=== PATIENT | female | born 1980 | race American Indian/Alaskan Native ===

== ENCOUNTER 2017-04-21 20:14 | Inpatient (IN) | payer MEDICARE ==
[2017-04-21 21:25] LABS: Basophils % (Auto) 0.5 % (0.0-1.8); Eosinophils % (Auto) 2.8 % (0.0-4.3); Hemoglobin 9.2 gm/dl (10.1-14.3); Mean Corpuscular HGB Conc 33 % (30-34); Mean Corpuscular Hemoglobin 32 pg (28-32); Mean Corpuscular Volume 97 fl (79-97); Red Blood Count 2.87 M/mm3 (3.65-5.03); Red Cell Distribution Width 14.4 % (13.2-15.2)
[2017-04-21 21:30] LABS: Platelet Count 77 K/mm3 (140-440)
[2017-04-21 21:44] LABS: BUN/Creatinine Ratio 7.74; Calcium 7.9 mg/dL (8.4-10.2); Chloride 92.8 mmol/L (98-107); Potassium 5.9 mmol/L (3.6-5.0)
--- NOTE | 2017-04-22 08:34 | XRay Report ---
Chest 2 views. History: Shortness of breath. Findings: The heart is mildly enlarged with minimal prominence of the central pulmonary vessels. The periphery of the lungs is clear. No focal infiltrates are seen and there is no pleural fluid. Impression: Mild cardiomegaly with central vascular congestion.
--- NOTE | 2017-04-22 10:56 | Emergency Department Report ---
ED Chest Pain HPI - General Chief Complaint: Chest Pain Stated Complaint: SHORTNESS OF BREATH/CHEST PAIN Time Seen by Provider: 04/22/17 10:35 Source: patient Mode of arrival: Ambulatory Limitations: No Limitations - History of Present Illness Initial Comments: The patient missed that she suffers from chronic pain in her arms and her legs. She actually denies chest pain now. She had pain in her right and left arm when she was out in triage. She may have stated chest pain but is denying right now. Basically she is here for dialysis because outpatient arrangements fell through. Patient states that she was last dialyzed on at [facility]. Outpatient arrangements were in progress but did not materialize. She states that that was because she needed hepatitis testing. In any case she is a chronic dialysis patient for the last 9 years recently relocated to the [place] area. She has history of hypertension. She states that her renal failure was precipitated by preeclampsia. Complaint: other -: year(s) Onset: other (chronic pain of her arms and legs) Pain Location: other (denies chest pain) Pain Radiation: other (both arms) Severity: mild Severity scale (0 -10): 7 Quality: aching Consistency: now resolved (states only lasted minutes) Improves With: nothing Worsens With: nothing re: denies: nausea, vomting, diaphoresis Other Symptoms: denies: cough, fever, syncope Treatments Prior to Arrival: none - Related Data Allergies Allergy/AdvReac Type Severity Reaction Status Date / Time adhesive tape Allergy Swelling Verified 04/21/17 20:47 hydromorphone HCl Allergy Unknown Verified 04/21/17 20:47 [From Dilaudid] Heart Score - HEART Score History: Slightly suspicious EKG: Normal Age: < 45 Risk factors: No known risk factors Troponin: < normal limit HEART Score: 0 - Critical Actions Critical Actions: 0-3 pts:0.9-1.7%risk of adverse cardiac event.Candidate for discharge ED Review of Systems ROS: Stated complaint: SHORTNESS OF BREATH/CHEST PAIN Other details as noted in HPI Constitutional: denies: chills, fever Eyes: denies: eye pain, eye discharge, vision change ENT: denies: ear pain, throat pain Respiratory: denies: cough, shortness of breath, wheezing Cardiovascular: denies: chest pain, palpitations Endocrine: no symptoms reported Gastrointestinal: denies: abdominal pain, nausea, diarrhea Genitourinary: as per HPI. denies: urgency, dysuria, discharge Musculoskeletal: denies: back pain, joint swelling, arthralgia Skin: denies: rash, lesions Neurological: denies: headache, weakness, paresthesias Psychiatric: denies: anxiety, depression Hematological/Lymphatic: denies: easy bleeding, easy bruising ED Past Medical Hx - Past Medical History Previous Medical History?: Yes Hx Hypertension: Yes Hx Renal Disease: Yes (dialysis TUE, THURS, SAT) - Surgical History Past Surgical History?: Yes Additional Surgical History: fistula left arm, kidney transplant 2012, thyroid sx 2014 - Social History Smoking Status: Current Every Day Smoker Substance Use Type: Marijuana ED Physical Exam - General Limitations: No Limitations General appearance: alert, in no apparent distress - Head Head exam: Present: atraumatic, normocephalic - Eye Eye exam: Present: normal appearance. Absent: scleral icterus - ENT ENT exam: Present: mucous membranes moist - Neck Neck exam: Present: normal inspection - Respiratory Respiratory exam: Present: normal lung sounds bilaterally. Absent: respiratory distress - Cardiovascular Cardiovascular Exam: Present: regular rate, normal rhythm. Absent: systolic murmur, diastolic murmur, rubs, gallop - GI/Abdominal GI/Abdominal exam: Present: soft, normal bowel sounds. Absent: distended, tenderness, guarding, rebound - Extremities Exam Extremities exam: Present: other - Back Exam Back exam: Present: normal inspection - Neurological Exam Neurological exam: Present: alert, oriented X3, CN II-XII intact. Absent: motor sensory deficit - Psychiatric Psychiatric exam: Present: normal affect, normal mood - Skin Skin exam: Present: warm, dry, intact, normal color. Absent: rash ED Course Vital Signs 04/21/17 04/22/17 04/22/17 20:47 07:48 07:50 Temperature 98.1 F Pulse Rate 59 L Respiratory 20 Rate Blood Pressure 174/112 Blood Pressure [Left] O2 Sat by Pulse 100 100 100 Oximetry 04/22/17 04/22/17 04/22/17 08:01 08:11 08:21 Temperature Pulse Rate Respiratory Rate Blood Pressure 160/103 160/103 Blood Pressure [Left] O2 Sat by Pulse 100 100 100 Oximetry 04/22/17 04/22/17 04/22/17 08:30 08:41 08:50 Temperature Pulse Rate Respiratory 12 Rate Blood Pressure 165/105 165/105 Blood Pressure [Left] O2 Sat by Pulse 100 100 100 Oximetry 04/22/17 04/22/17 10:08 11:30 Temperature 98.7 F Pulse Rate 67 59 L Respiratory 12 Rate Blood Pressure 163/103 Blood Pressure 161/105 [Left] O2 Sat by Pulse 100 Oximetry - Reevaluation(s) Reevaluation #1: Patient refused Kayexalate. She is admitted to the hospitalist service by Dr. CRUZ for further care and evaluation. She was given glucose and insulin to temporize awaiting dialysis. I am waiting for the reimbursement consultant called back. She is clinically stable. Nitropaste for uncontrolled hypertension. 04/22/17 11:58 HALIMA score - Halima Score Age > 65: (0) No Aspirin use within the Past 7 Days: (0) No 3 or more CAD Risk Factors: (0) No 2 or more Angina events in past 24 hrs: (0) No Known CAD with more than 50% Stenosis: (0) No Elevated Cardiac Markers: (0) No ST Deviation Greater than 0.5mm: (0) No HALIMA Score: 0 ED Medical Decision Making - Lab Data Result diagrams: 04/21/17 21:10 04/21/17 21:10 Laboratory Results - last 24 hr 04/21/17 04/21/17 04/21/17 21:10 21:10 21:10 WBC 3.0 L RBC 2.87 L Hgb 9.2 L Hct 28.0 L MCV 97 MCH 32 MCHC 33 RDW 14.4 Plt Count 77 L Lymph % (Auto) 35.4 H Doddridge % (Auto) 7.9 H Eos % (Auto) 2.8 Baso % (Auto) 0.5 Lymph # 1.1 L Doddridge # 0.2 Eos # 0.1 Baso # 0.0 Seg Neutrophils % 53.4 Seg Neutrophils # 1.6 L Sodium 140 Potassium 5.9 H Chloride 92.8 L Carbon Dioxide 24 Anion Gap 29 BUN 110 H Creatinine 14.2 H Estimated GFR 4 BUN/Creatinine Ratio 7.74 Glucose 92 Calcium 7.9 L Troponin T 0.021 NT-Pro-B Natriuret Pep 83087 H HCG, Qual Negative 04/22/17 04/22/17 00:09 02:33 WBC RBC Hgb Hct MCV MCH MCHC RDW Plt Count Lymph % (Auto) Doddridge % (Auto) Eos % (Auto) Baso % (Auto) Lymph # Doddridge # Eos # Baso # Seg Neutrophils % Seg Neutrophils # Sodium Potassium Chloride Carbon Dioxide Anion Gap BUN Creatinine Estimated GFR BUN/Creatinine Ratio Glucose Calcium Troponin T 0.021 0.018 NT-Pro-B Natriuret Pep HCG, Qual - EKG Data -: EKG Interpreted by Me EKG shows normal: sinus rhythm Rate: bradycardia - EKG Data Interpretation: LVH, other (consistent with hyperkalemia) - Radiology Data interpreted by me: Cardiomegaly with mild cephalization Critical Care Time: Yes Critical care time in (mins) excluding proc time.: 45 Critical care attestation.: If time is entered above; I have spent that time in minutes in the direct care of this critically ill patient, excluding procedure time. ED Disposition Clinical Impression: Hyperkalemia, Pancytopenia, Thrombocytopenia, Uncontrolled hypertension, End- stage renal disease on hemodialysis Cardiomyopathy Qualifiers: Cardiomyopathy type: unspecified Qualified Code(s): I42.9 - Cardiomyopathy, unspecified Disposition: OP ADMIT IP TO THIS HOSP Is pt being admited?: Yes Does the pt Need Aspirin: No (medically contraindicated platelet count 77) Condition: Stable Instructions: Hypertension (ED) Referrals: PRIMARY CARE, [Primary Care Provider] - 3-5 Days Time of Disposition: 12:00
[2017-04-22] MEDS ORDERED: NITRO-BID 2% TP ONE (10:57)
[2017-04-22] MEDS ORDERED: KIONEX PO ONE (10:57)
[2017-04-22] MEDS ORDERED: D50W (25GM) Syringe IV ONE (11:51)
--- NOTE | 2017-04-22 12:29 | Admit Criteria Form ---
Admission Criteria Documentation: CARDIOLOGY GRG Clinical Indications for Admission to Inpatient Care (Martha/check or initial the applicable condition/criteria) Hospital admission is needed for appropriate care of the patient because of ANY ONE of the following: [ ] I. Hemodynamic instability as indicated by ALL of the following (1)(2)(3) (4)(5)(6)(7)(8)(9)(10) [ ]a) Vital sign abnormality not readily corrected by appropriate treatment with 12-24 hours for ANY ONE: [ ]i) Hypotension that persists despite appropriate treatment (eg, volume repletion) [ ]ii) Tachycardiathat persists despite appropriate tx ( e.g., analgesia, fluids, sedation as indicated [ ]iii) Orthostatic vital sign changes that persists despite appropriate treatment (eg, volume repletion) [ ]b) Vital sign abnormailty that is severe indicated by ANY ONE of the following: [ ]i) Inadequate perfusion indicated by ANY ONE of the following: [ ] 1) Lactic acidosis (> 2 mmol/L) [ ] 2) New abnormal capillary refill (> 3 seconds) [ ] 3) Reduced urine output [ ] 4) New altered mental status [ ] 5) Myocardial Ischemia [ ] 6) Other metabolic acidosis (arterial pH <7.35 ) not otherwise explained. [ ]ii) Mean arterial pressure[A] less than 60 mm Hg [ ]iii) Mean arterial pressure[A] less than 70 mm Hg after 30 minutes of appropriate treatment (eg, fluid resuscitation) [ ]iv) Sustained heart rate greater than 120 beats per minute in adult or child 6 years or older[B] [ ]v) IV inotropic or vasopressor medication required to maintain adequate blood pressure or perfusion [ ] II. Severe heart failure as indicated by ANY ONE of the following(17)(18) [ ]a) Respiratory distress [ ]b) Hypotension [ ]c) Debilitating anasarca refractory to therapy (eg, tissue breakdown with infection)[C](19) [ ]d) Cardiac arrhythmias of immediate concern [ ]e) Myocardial ischemia [ ] III. Cardiac arrhythmias or findings of immediate concern indicated by ANY ONE of the following (21)(22): [ ] a) Heart rhythms that are inherently dangerous or unstable indicated by ANY ONE of the following (23)(24)(25): [ ] i) Resuscitated ventricular fibrillation or cardiac arrest [ ] ii) Ventricular escape rhythm [ ] iii) Sustained ventricular tachycardia (30 seconds or more of ventricular rhythm at greater than 100 beats per minute) [ ] iv) Nonsustained ventricular tachycardia and ANY ONE of the following: [ ] 1) Suspected cardiac ischemia as cause or consequence of ventricular tachycardia [ ] 2) Acute myocarditis [ ] b) Unstable cardiac conduction defects indicated by ANY ONE of the following(25)(26)(27) [ ] i) Type II second-degree atrioventricular block [ ]ii) Third-degree atrioventricular block [ ]iii) New-onset left bundle branch block with suspected myocardial ischemia [ ]c) Any heart rhythm and ANY ONE of the following (23)(24)(28)(29) (30) [ ] i) Continuous long-term ECG monitoring needed (e.g., initiation of drug requiring monitoring for more than 24 hours) [ ] ii) Patient has automatic implanted cardioverter defibrillator that is repeatedly firing, malfunctioning, or in need of immediate adjustment of settings beyond the scope of ambulatory or observation care [ ]d) Heart rhythms of concern due to ANY ONE of the following: [ ] i) Hypotension [ ] ii) Respiratory distress [ ] iii) Association with other significant symptoms (e.g., bradycardia with syncope or ongoing dizziness, supraventricular tachycardia with chest pain (28)(29)(31) [ ] IV. Monitoring for cardiac contusion beyond the scope of observation care needed [A](32)(33)(34) [ ] V. Surgical or device complication (e.g., valve replacement complication , ICD disfunction or pacemaker dysfunction) (49)(50)(51)(52)(53)(54) [ ] . Inpatient palliative care needed. [F](51)(52) Also use Inpatient Palliative Care Criteria [ ] VII. Nonbacterial thrombotic (marantic) endocarditis(43)(44)(55)(56)(57) [X] VIII. Cardiology condition, symptom, or finding for which emergency and observation care has failed or are not considered appropriate. [ ] IX. Acute valvular disease requiring inpatient as indicated by ANY ONE of the following (40)(41) [ ]a) Acute valvular regurgitation (42) [ ]b) Noninfectious valvulitis (43)(44) [ ]c) Obstructive valve thrombosis (45)(46) [ ]d) Paravalvular leak(47)(48) [ ]e) Other significant valvular disorder remaining after emergency or observation level of care (as appropriate) [ ]X. Pericardial disease requiring inpatient treatment as indicated by ANY ONE of the following (35)(36)(37)(38) [ ]a) Suspected tamponade [ ]b) Hemopericardium [ ]c) Other significant pericardial disorder remaining after emergency or observation level of care (as appropriate)(39) [ ] XI. Cardiac ischemia beyond scope of emergency and observation care. [ ] XII. Cyanotic heart disease requiring inpatient care as indicated by 1 or more of the following(58)(59)(60): [ ]a) Acute onset of hypoxemia [ ]b) Exacerbation [ ] XIII. Hypertension requiring inpatient treatment as indicated by ANYONE of the following(11)(12)(13)(14): [ ]a) Severe hypertension (SBP greater than 180 mm Hg or DBP greater than 110 mm Hg, or greater than the 95th percentile for age, gender, and height in pediatric patients) that cannot be controlled (eg, to SBP less than 160 mm Hg and DBP less than 100 mm Hg) by emergency department or observation care treatment(15) [ ]b) Acute end organ damage secondary to hypertension (SBP greater than 140 mm Hg or DBP greater than 90 mm Hg) as indicated by ANYONE of the following: [ ] i) Hypertensive encephalopathy (eg, Altered mental status)(16) [ ] ii) Cerebral infarction [ ] iii) Intracranial hemorrhage [ ] iv) Myocardial ischemia or infarction [ ] v) Heart failure (eg, pulmonary edema) [ ] vi) Aortic dissection [ ] vii) Increased creatinine (new) with reduction of more than 50% in estimated glomerular filtration rate from baseline [ ] viii) Papilledema [ ] ix) Retinal hemorrhage [ ] x) Microangiopathic hemolytic anemia [ ] xi) Seizure [ ] xii) Other significant finding secondary to hypertension [ ] XIV. Complications of transplanted heart indicated by ANY ONE of the following(61): [ ]a) Acute graft rejection requiring inpatient management (eg, intravenous imunosuppression)(62)(63) [ ]b) Acute graft heart failure indicated by ANY ONE of the following(64): [ ] i) Hemodynamic instability [ ] ii) Cardiac arrhythmias of immediate concern [ ] iii) Pulmonary edema that is very severe (eg, mechanical ventilation needed, imminent or likely, need for 100% oxygen to keep oxygen saturation above 90%) [ ] iv) Pulmonary edema that is persistent as indicated by ALL of the following: [ ] 1) New need for oxygen therapy to keep oxygen saturation above 90 % (or increased FiO2 need from baseline) [ ] 2) Has not improved sufficiently with emergency department or observation care IV diuretics or other heart failure treatments[E]. [ ] iv) Altered mental status that is severe or persistent [ ] iv) Increased creatinine (new on laboratory test) with reduction of more than 50% in estimated glomerular filtration rate from baseline [ ] iv) Progressively (ongoing) rising creatinine (known from past laboratory test) with reduction of more than 25% in estimated glomerular filtration rate from baseline [ ] iv) Acute renal failure [ ] iv) Acute peripheral ischemia (eg, examination shows pulseless, cool, mottled, or cyanotic extremity) [ ] iv) Pulmonary artery catheter monitoring needed [ ] iv) Other sign or symptom of heart failure requiring inpatient treatment (ie, too severe or not responsive to outpatient and observation care treatment) [ ]c) Infection requiring inpatient management (eg, Hemodynamic instability, need for intravenous antimicrobial treatment)(66)(67)(68)(69)(70) [ ]d) Cardiac allograft vasculopathy requiring inpatient management (eg evidence of cardiacischemia)(71) [ ]e) Other complication of transplanted heart (eg, stroke, severe pulmonary hypertension, severe valvular dysfunction) requiring inpatient management(72) The original [employer] content created by [employer] has been revised. The portions of the content which have been revised are identified through the use of italic text or in bold, and [email or web address] has neither reviewed nor approved the modified material. All other unmodified content is copyright [facility]. Please see references footnoted in the original [facility] edition 2017 Admission Criteria Met: Yes
--- NOTE | 2017-04-22 14:08 | Consultation ---
History of Present Illness - Reason for Consult Consult date: 04/22/17 end stage renal disease Requesting physician: MARLENY CRUZ - History of Present Illness Mrs. Jimenez is a 36-year female with past medical history of end-stage renal disease and hypertension presented to the emerge with the complaints of chest pain and shortnes of breath. She recently moved to [place] without making any dialysis arrangements. Her potassium level noted to be elevated at 5.9. Patient states that she has been on dialysis for the last 9 years following preeclampsia. . She recently moved from [place], [place]. She was supposed to dialyzes at [facility]. However aberrantly her paperworks fell through and she could not dialyze there. States that she did go to [facility] last for dialysis. patient also complains of some associated shortness of breath. she also complains of some nausea but no vomiting. Past History Past Medical History: dialysis, hypertension Past Surgical History: Other (history of creation of AV fistula) Family history: no significant family history Medications and Allergies Allergies Allergy/AdvReac Type Severity Reaction Status Date / Time adhesive tape Allergy Swelling Verified 04/21/17 20:47 hydromorphone HCl Allergy Unknown Verified 04/21/17 20:47 [From Dilaudid] Home Medications Medication Instructions Recorded Confirmed Last Taken Type Carvedilol [Coreg] 25 mg PO BID 04/22/17 04/22/17 04/21/17 History Labetalol [Normodyne] 200 mg PO BID 04/22/17 04/22/17 04/21/17 History Lisinopril [Zestril] 20 mg PO BID 04/22/17 04/22/17 04/21/17 History Minoxidil [Loniten] 2.5 mg PO BID 04/22/17 04/22/17 04/21/17 History amLODIPine [Norvasc] 5 mg PO DAILY 04/22/17 04/22/17 04/21/17 History cloNIDine [Clonidine] 1 each TD QWEEK 04/22/17 04/22/17 Unknown History Review of Systems All systems: negative (negative except as noted above) Exam - Vital Signs Vital signs: Vital Signs Temp Pulse Resp BP Pulse Ox 98.1 F 59 L 20 174/112 100 04/21/17 20:47 04/21/17 20:47 04/21/17 20:47 04/21/17 20:47 04/21/17 20:47 - General Appearance General appearance: well-developed, well-nourished, appears stated age EENT: PERRL, mucous membranes moist Neck: Present: neck supple, trachea midline. Absent: JVD/HJR, Masses Respiratory: Clear to Ascultation Heart: regular, normal heart rate Gastrointestinal: Present: normal, normoactive bowel sounds Integumentary: no rash, other (no edema. AV fistula in her left arm. 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 Wants her pump speed to be turned down to 350. Also does not want much fluid to be taken off. States that she never runs more than 2 hours and 45 minutes * hopefully dialysis will correct her hyperkalemia. * depending on her chemistries, she may need additional dialysis tomorrow * Procrit with dialysis * Adjust diet and meds for ESRD state * no IV, BP R venipuncture in her access arm * Consult case management for outpatient dialysis arrangements * Thank you very much for the consultation. She'll follow along with you
[2017-04-22] MEDS ORDERED: TYLENOL PO PRN ×2 (15:49→22:53)
[2017-04-22] MEDS ORDERED: BENADRYL PO PRN (15:52)
[2017-04-22] MEDS ORDERED: NACL 0.9 (PRIMING MACHINE ONLY DIALYSIS) MC ONE (16:01)
[2017-04-22] MEDS ORDERED: APRESOLINE IV PRN ×2 (17:53→23:51)
[2017-04-22] MEDS: PERCOCET 5/325 PO PRN (21:42)
--- NOTE | 2017-04-22 22:47 | History and Physical Report ---
History of Present Illness Date of examination: 04/22/17 Date of admission: 04/22/17 11:29 Chief complaint: Chest pain since AM History of present illness: Chest pain sinceAM -intermittent in nature. Dull in character non radiating.5/ 10 intensity.No Diaphoresis/SOB/palpitations.No exacerbating/relieving factors. Patient states that she was last dialyzed on at [place]. Outpatient arrangements were in progress but did not materialize. She states that that was because she needed hepatitis testing. In any case she is a chronic dialysis patient for the last 9 years recently relocated to the [facility]. She has history of hypertension. She states that her renal failure was precipitated by preeclampsia. - Past Medical History Previous Medical History?: Yes Hx Hypertension: Yes Hx Renal Disease: Yes (dialysis THU, , THU) - Surgical History Past Surgical History?: Yes Additional Surgical History: fistula left arm, kidney transplant 2012, thyroid sx 2014 - Social History Smoking Status: Current Every Day Smoker Substance Use Type: Marijuana Fam History HTN Review of Systems ROS: Stated complaint: SHORTNESS OF BREATH/CHEST PAIN Other details as noted in HPI Constitutional: denies: chills, fever Eyes: denies: eye pain, eye discharge, vision change ENT: denies: ear pain, throat pain Respiratory: denies: cough, shortness of breath, wheezing Cardiovascular: denies: chest pain, palpitations Endocrine: no symptoms reported Gastrointestinal: denies: abdominal pain, nausea, diarrhea Genitourinary: as per HPI. denies: urgency, dysuria, discharge Musculoskeletal: denies: back pain, joint swelling, arthralgia Skin: denies: rash, lesions Neurological: denies: headache, weakness, paresthesias Psychiatric: denies: anxiety, depression Hematological/Lymphatic: denies: easy bleeding, easy bruising Past History Past Medical History: dialysis, hypertension Past Surgical History: Other (history of creation of AV fistula) Family history: no significant family history Medications and Allergies Allergies Allergy/AdvReac Type Severity Reaction Status Date / Time adhesive tape Allergy Swelling Verified 04/21/17 20:47 hydromorphone HCl Allergy Unknown Verified 04/21/17 20:47 [From Dilaudid] Home Medications Medication Instructions Recorded Confirmed Last Taken Type Carvedilol [Coreg] 25 mg PO BID 04/22/17 04/22/17 04/21/17 History Labetalol [Normodyne] 200 mg PO BID 04/22/17 04/22/17 04/21/17 History Lisinopril [Zestril] 20 mg PO BID 04/22/17 04/22/17 04/21/17 History Minoxidil [Loniten] 2.5 mg PO BID 04/22/17 04/22/17 04/21/17 History amLODIPine [Norvasc] 5 mg PO DAILY 04/22/17 04/22/17 04/21/17 History cloNIDine [Clonidine] 1 each TD QWEEK 04/22/17 04/22/17 Unknown History Active Meds: Active Medications Acetaminophen (Tylenol) 650 mg PO Q8H PRN PRN Reason: Pain, Mild (1-3) Last Admin: 04/22/17 16:10 Dose: 650 mg Diphenhydramine HCl (Benadryl) 25 mg PO Q8H PRN PRN Reason: Itching Last Admin: 04/22/17 16:10 Dose: 25 mg Hydralazine HCl (Apresoline) 10 mg IV Q4HR PRN PRN Reason: Hypertension Last Admin: 04/22/17 18:39 Dose: 10 mg Oxycodone/Acetaminophen (Percocet 5/325) 1 tab PO Q6H PRN PRN Reason: Pain, Moderate (4-6) Last Admin: 04/22/17 21:42 Dose: 1 tab Exam - Constitutional Vitals: Temp Pulse Resp BP Pulse Ox 98.1 F 68 18 177/104 100 04/22/17 18:39 04/22/17 18:40 04/22/17 18:40 04/22/17 18:39 04/22/17 18:40 General appearance: Present: no acute distress, well-nourished - EENT Eyes: Present: PERRL ENT: hearing intact, clear oral mucosa - Neck Neck: Present: supple, normal ROM - Respiratory Respiratory effort: normal Respiratory: bilateral: CTA - Cardiovascular Heart Sounds: Present: S1 & S2. Absent: rub, click - Extremities Extremities: pulses symmetrical, No edema Peripheral Pulses: within normal limits - Abdominal General gastrointestinal: Present: soft, non-tender, non-distended, normal bowel sounds Female genitourinary: Present: normal - Integumentary Integumentary: Present: clear, warm, dry - Musculoskeletal Musculoskeletal: gait normal, strength equal bilaterally - Psychiatric Psychiatric: appropriate mood/affect, intact judgment & insight - Neurologic Neurologic: CNII-XII intact, moves all extremities Results - Labs CBC & Chem 7: 04/21/17 21:10 04/23/17 05:12 Labs: Laboratory Last Values WBC 3.0 K/mm3 (4.5-11.0) L 04/21/17 21:10 RBC 2.87 M/mm3 (3.65-5.03) L 04/21/17 21:10 Hgb 9.2 gm/dl (10.1-14.3) L 04/21/17 21:10 Hct 28.0 % (30.3-42.9) L 04/21/17 21:10 MCV 97 fl (79-97) 04/21/17 21:10 MCH 32 pg (28-32) 04/21/17 21:10 MCHC 33 % (30-34) 04/21/17 21:10 RDW 14.4 % (13.2-15.2) 04/21/17 21:10 Plt Count 77 K/mm3 (140-440) L 04/21/17 21:10 Lymph % (Auto) 35.4 % (13.4-35.0) H 04/21/17 21:10 [place] % (Auto) 7.9 % (0.0-7.3) H 04/21/17 21:10 Eos % (Auto) 2.8 % (0.0-4.3) 04/21/17 21:10 Baso % (Auto) 0.5 % (0.0-1.8) 04/21/17 21:10 Lymph # 1.1 K/mm3 (1.2-5.4) L 04/21/17 21:10 [place] # 0.2 K/mm3 (0.0-0.8) 04/21/17 21:10 Eos # 0.1 K/mm3 (0.0-0.4) 04/21/17 21:10 Baso # 0.0 K/mm3 (0.0-0.1) 04/21/17 21:10 Seg Neutrophils % 53.4 % (40.0-70.0) 04/21/17 21:10 Seg Neutrophils # 1.6 K/mm3 (1.8-7.7) L 04/21/17 21:10 Sodium 140 mmol/L (137-145) 04/21/17 21:10 Potassium 5.9 mmol/L (3.6-5.0) H 04/21/17 21:10 Chloride 92.8 mmol/L (98-107) L 04/21/17 21:10 Carbon Dioxide 24 mmol/L (22-30) 04/21/17 21:10 Anion Gap 29 mmol/L 04/21/17 21:10 BUN 110 mg/dL (7-17) H 04/21/17 21:10 Creatinine 14.2 mg/dL (0.7-1.2) H 04/21/17 21:10 Estimated GFR 4 ml/min 04/21/17 21:10 BUN/Creatinine Ratio 7.74 % 04/21/17 21:10 Glucose 92 mg/dL (65-100) 04/21/17 21:10 POC Glucose 88 (70-105) 04/22/17 21:21 Calcium 7.9 mg/dL (8.4-10.2) L 04/21/17 21:10 Troponin T 0.018 ng/mL (0.00-0.029) 04/22/17 02:33 NT-Pro-B Natriuret Pep 71407 pg/mL (0-450) H 04/21/17 21:10 HCG, Qual Negative (Negative) 04/21/17 21:10 - Imaging and Cardiology EKG: report reviewed (Sinus bradycardia 56/min prolonged qt) Assessment and Plan Advance Directives: Yes (FC) VTE prophylaxis?: Chemical Plan of care discussed with patient/family: Yes - Patient Problems (1) Chest pain Current Visit: Yes Status: Acute Qualifiers: Chest pain type: unspecified Ischemic chest pain type: I Qualified Code(s ): R07.9 - Chest pain, unspecified Plan to address problem: Chest pain r/o SC protocol Serial CE's and stress test (2) End-stage renal disease on hemodialysis Current Visit: Yes Status: Chronic Plan to address problem: Needs outpatient dialysis arrangements to be made integrated logistics operations manager consulted. She recently moved to [place] (3) Hyperkalemia Current Visit: Yes Status: Acute Plan to address problem: Mild should correct with HD (4) Uncontrolled hypertension Current Visit: Yes Status: Chronic Plan to address problem: COnt her antihypertensives Will discontinue Labetolol for time being as she is also on Carvedilol. Compliance issue?? (5) DVT prophylaxis Current Visit: Yes Status: Acute Plan to address problem: on Heparin
[2017-04-22] MEDS ORDERED: MILK OF MAGNESIA PO PRN (22:53)
[2017-04-22] MEDS ORDERED: ZOFRAN IV PRN (22:53)
[2017-04-22] MEDS ORDERED: DULCOLAX PR PRN (22:53)
[2017-04-22] MEDS ORDERED: DILAUDID IV PRN (22:53)
[2017-04-22] MEDS: AMBIEN PO PRN (23:22)
[2017-04-23 00:43] LABS: Creatine Kinase 95 units/L (30-135)
[2017-04-23 00:49] LABS: Creatine Kinase MB < 1.0 ng/mL (0.0-4.0)
[2017-04-23] MEDS: PERCOCET 5/325 PO PRN ×2 (05:15→15:54)
[2017-04-23 06:21] LABS: Creatine Kinase 88 units/L (30-135); Creatine Kinase MB < 1.0 ng/mL (0.0-4.0)
[2017-04-23 06:24] LABS: Albumin/Globulin Ratio 1.2 %; Alkaline Phosphatase 93 units/L (35-129); Anion Gap 23 mmol/L; Blood Urea Nitrogen 53 mg/dL (7-17); Calcium 7.9 mg/dL (8.4-10.2); Carbon Dioxide 26 mmol/L (22-30); Chloride 92.8 mmol/L (98-107); Glucose 79 mg/dL (65-100); Potassium 5.4 mmol/L (3.6-5.0); Sodium 136 mmol/L (137-145); Total Protein 7.4 g/dL (6.3-8.2)
[2017-04-23 06:26] LABS: Alanine Aminotransferase < 5 units/L (7-56)
[2017-04-23] MEDS: COREG PO SCH ×2 (08:50→21:57)
[2017-04-23] MEDS: ZESTRIL PO SCH ×2 (08:50→21:57)
[2017-04-23] MEDS: NORVASC PO SCH (08:50)
--- NOTE | 2017-04-23 09:01 | Progress Note ---
Assessment and Plan Assessment and plan: Patient is a 36 year ESRD on HD which she states started as a result of Preeclampsia, ON HD she presents to the ER with complaints of Right and left arm pain and although chest pain is reported the patient denies this. she was last dialysed on but has missed a series of Dialysis since relocating to [place]. Atypical chest pain * stress test today * continue coreg ESRD * per Nephrology * case management to assist with outpatient dialysis set up HYPERKALEMIA * improved. 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 Hypoglycemia * likely due to insulin given to correct hyperkalemia Noncompliance * educated about compliance issues DVT/GI prophy Plan of care discussed with the patient in detail obtain refords. History Interval history: Patient seen and examined still with generalized body pain, otherwise no acute distress for dialysis today. Hospitalist Physical - Physical exam Narrative exam: VITAL SIGNS: Reviewed. GENERAL: The patient appeared well nourished and normally developed. Vital signs as documented. HEAD: No signs of head trauma. EYES: Pupils are equal. Extraocular motions intact. EARS: Hearing grossly intact. MOUTH: Oropharynx is normal. NECK: No adenopathy, no JVD. CHEST: Chest with clear breath sounds bilaterally. No wheezes, rales, or rhonchi. CARDIAC: Regular rate and rhythm. S1 and S2, without murmurs, gallops, or rubs. VASCULAR: No Edema. Peripheral pulses normal and equal in all extremities. ABDOMEN: Soft, without detectable tenderness. No sign of distention. No rebound or guarding, and no masses palpated. Bowel Sounds normal. MUSCULOSKELETAL: Good range of motion of all major joints. Extremities without clubbing, cyanosis or edema. NEUROLOGIC EXAM: Alert and oriented x 3. No focal sensory or strength deficits. Speech normal. Follows commands. PSYCHIATRIC: Mood normal. SKIN: AV fistula in her left upper arm. - Constitutional Vitals: Temp Pulse Resp BP Pulse Ox 97.5 F L 65 20 163/98 94 04/23/17 08:49 04/23/17 08:49 04/23/17 08:49 04/23/17 08:49 04/23/17 08:49 General appearance: Present: no acute distress, well-nourished Results - Labs CBC & Chem 7: 04/21/17 21:10 04/23/17 05:12 Labs: Laboratory Last Values WBC 3.0 K/mm3 (4.5-11.0) L 04/21/17 21:10 RBC 2.87 M/mm3 (3.65-5.03) L 04/21/17 21:10 Hgb 9.2 gm/dl (10.1-14.3) L 04/21/17 21:10 Hct 28.0 % (30.3-42.9) L 04/21/17 21:10 MCV 97 fl (79-97) 04/21/17 21:10 MCH 32 pg (28-32) 04/21/17 21:10 MCHC 33 % (30-34) 04/21/17 21:10 RDW 14.4 % (13.2-15.2) 04/21/17 21:10 Plt Count 77 K/mm3 (140-440) L 04/21/17 21:10 Lymph % (Auto) 35.4 % (13.4-35.0) H 04/21/17 21:10 [place] % (Auto) 7.9 % (0.0-7.3) H 04/21/17 21:10 Eos % (Auto) 2.8 % (0.0-4.3) 04/21/17 21:10 Baso % (Auto) 0.5 % (0.0-1.8) 04/21/17 21:10 Lymph # 1.1 K/mm3 (1.2-5.4) L 04/21/17 21:10 [place] # 0.2 K/mm3 (0.0-0.8) 04/21/17 21:10 Eos # 0.1 K/mm3 (0.0-0.4) 04/21/17 21:10 Baso # 0.0 K/mm3 (0.0-0.1) 04/21/17 21:10 Seg Neutrophils % 53.4 % (40.0-70.0) 04/21/17 21:10 Seg Neutrophils # 1.6 K/mm3 (1.8-7.7) L 04/21/17 21:10 Sodium 136 mmol/L (137-145) L 04/23/17 05:12 Potassium 5.4 mmol/L (3.6-5.0) H 04/23/17 05:12 Chloride 92.8 mmol/L (98-107) L 04/23/17 05:12 Carbon Dioxide 26 mmol/L (22-30) 04/23/17 05:12 Anion Gap 23 mmol/L 04/23/17 05:12 BUN 53 mg/dL (7-17) H 04/23/17 05:12 Creatinine 9.8 mg/dL (0.7-1.2) H 04/23/17 05:12 Estimated GFR 6 ml/min 04/23/17 05:12 BUN/Creatinine Ratio 5.40 % 04/23/17 05:12 Glucose 79 mg/dL (65-100) 04/23/17 05:12 POC Glucose 88 (70-105) 04/22/17 21:21 Hemoglobin A1c 4.6 % (4-6) 04/22/17 23:45 Calcium 7.9 mg/dL (8.4-10.2) L 04/23/17 05:12 Total Bilirubin 0.50 mg/dL (0.1-1.2) 04/23/17 05:12 AST 14 units/L (5-40) 04/23/17 05:12 ALT < 5 units/L (7-56) L 04/23/17 05:12 Alkaline Phosphatase 93 units/L (35-129) 04/23/17 05:12 Total Creatine Kinase 88 units/L (30-135) 04/23/17 05:12 CK-MB (CK-2) < 1.0 ng/mL (0.0-4.0) 04/23/17 05:12 CK-MB (CK-2) Rel Index 1.1 (0-4) 04/23/17 05:12 Troponin T 0.022 ng/mL (0.00-0.029) 04/23/17 05:12 NT-Pro-B Natriuret Pep 32646 pg/mL (0-450) H 04/21/17 21:10 Total Protein 7.4 g/dL (6.3-8.2) 04/23/17 05:12 Albumin 4.0 g/dL (3.9-5) 04/23/17 05:12 Albumin/Globulin Ratio 1.2 % 04/23/17 05:12 HCG, Qual Negative (Negative) 04/21/17 21:10
--- NOTE | 2017-04-23 09:11 | Progress Note ---
Assessment and Plan impression * End-stage renal disease on maintenance hemodialysis * chest pain * Hyperkalemia * Hypertension * Noncompliance * Anemia secondary to ESRD recommendations * Patient had approximately 3 hours of dialysis yesterday. * Hyperkalemia has been corrected partially. Shall dialyze her again today * hopefully dialysis will correct her hyperkalemia. * Procrit with dialysis * Adjust diet and meds for ESRD state * no IV, BP R venipuncture in her access arm * Consult case management for outpatient dialysis arrangements Subjective Date of service: 04/23/17 Interval history: Patient feels somewhat better today. Still complains of aches and pains all over her body. Shortness of breath has improved. She cut her dialysis time by 30 minutes yesterday. Objective - Vital Signs Vital signs: Vital Signs - 12hr 04/22/17 04/22/17 04/22/17 21:36 21:41 23:11 Temperature Pulse Rate 65 Respiratory Rate Blood Pressure 118/49 118/49 155/96 O2 Sat by Pulse 98 100 100 Oximetry 04/22/17 04/23/17 04/23/17 23:12 00:48 04:22 Temperature 98.5 F 98.4 F Pulse Rate 66 69 63 Respiratory 18 22 Rate Blood Pressure 134/91 176/109 O2 Sat by Pulse 100 95 100 Oximetry 04/23/17 04/23/17 05:15 08:49 Temperature 97.5 F L Pulse Rate 65 Respiratory 20 Rate Blood Pressure 174/109 163/98 O2 Sat by Pulse 94 Oximetry - General Appearance General appearance: well-developed, well-nourished, appears stated age EENT: PERRL, mucous membranes moist Neck: no JVD, no thyromegaly, no carotid bruit, supple Respiratory: Present: Clear to Ascultation Cardiology: regular, normal heart rate Gastrointestinal: normal, normoactive bowel sounds Integumentary: no rash, other (AV fistula in her left upper arm. Good bruit and thrill) - Lab 04/21/17 21:10 04/23/17 05:12 Most recent lab results Calcium 7.9 mg/dL (8.4-10.2) L 04/23/17 05:12
[2017-04-23] MEDS ORDERED: NACL 0.9% 100 ML IV PRN (09:12)
[2017-04-23] MEDS ORDERED: LEXISCAN IV ONE ×2 (09:35→09:38)
[2017-04-23] MEDS ORDERED: NORMODYNE PO SCH (10:00)
[2017-04-23] MEDS: HEPARIN SUB-Q SCH ×2 (10:45→21:57)
[2017-04-23 12:03] LABS: Creatine Kinase 79 units/L (30-135); Creatine Kinase MB < 1.0 ng/mL (0.0-4.0)
[2017-04-23] MEDS ORDERED: NACL 0.9 (PRIMING MACHINE ONLY DIALYSIS) MC ONE (12:22)
[2017-04-23] MEDS: AMBIEN PO PRN (21:57)
--- NOTE | 2017-04-23 22:46 | Treadmill Report ---
MYOCARDIAL PERFUSION IMAGING STUDY Resting perfusion images revealed homogeneous radioisotope activity in the left ventricle. On post-Lexiscan, myocardial perfusion images revealed similar distribution of the isotope. Gated scan revealed normal left ventricular systolic function with EF of 63%. There was no segmental motion abnormality noted. Right ventricle appeared normal. IMPRESSION: 1. This test is negative for ischemia. 2. Good left ventricular systolic function. JOB# [id number] TL/PAOLA
[2017-04-24 06:55] LABS: Hematocrit 27.7 % (30.3-42.9); Hemoglobin 9.3 gm/dl (10.1-14.3); Mean Corpuscular HGB Conc 34 % (30-34); Mean Corpuscular Hemoglobin 32 pg (28-32); Mean Corpuscular Volume 96 fl (79-97); Red Blood Count 2.89 M/mm3 (3.65-5.03); Red Cell Distribution Width 14.3 % (13.2-15.2); White Blood Count 2.5 K/mm3 (4.5-11.0)
[2017-04-24 06:56] LABS: Platelet Count 68 K/mm3 (140-440)
[2017-04-24 07:10] LABS: BUN/Creatinine Ratio 3.94; Calcium 8.7 mg/dL (8.4-10.2); Chloride 94.2 mmol/L (98-107); Potassium 5.1 mmol/L (3.6-5.0)
--- NOTE | 2017-04-24 08:46 | Query- Chest Pain ---
Bruce Buitrago___Cori Date:____04/24/17 Enroute Controller/CDS:____Rohit Phone#:___[phone] Exercise your independent professional judgment when responding to query. Questions asked do not imply a particular answer is desired or expected. We greatly appreciate your clarification on this issue. Clinical Documentation States: 36 year old female was admitted on 04/22/17 The hospitalist progress note (04/23/17 Dr. Persaud) states " Patient is a 36 year ESRD on HD and although chest pain is reported the patient denies this Atypical chest pain stress test today continue coreg " Clinical Findings Show: Stress test result: This test is negative for ischemia, good left ventricular systolic function EF: 63% Please document the etiology of Chest Pain: [ ] Myocardial Infarction [ ] Pneumonia [ ] Mediastinitis [ x] Costochondritis [ ] Pulmonary Embolism [ ] Coronary Artery Disease [ ] GERD [ ] Other: [ ] Comment/Explanation: Present on Admission: [ y] Yes (Y) [ ] Clinically undeterminable (W) [ ] No(N) Please document response in your Progress Notes and/or Discharge Summary and indicate if the condition was present on admission. NO
[2017-04-24 09:13] VITALS: BP 169/109
[2017-04-24] MEDS ORDERED: CATAPRES-TTS PATCH TD SCH (10:00)
--- NOTE | 2017-04-24 10:27 | Discharge Summary ---
Providers - Providers Date of Admission: 04/22/17 11:29 Attending physician: JULISSA MANZANO MD 04/22/17 Consult to Case Management [CONS] Routine Services Needed at Discharge: Bi Lead Notified:: returned case inspector Additional Physician Instructions: Dialysis arrangements 04/22/17 12:01 Consult to Physician [CONS] Urgent Consulting Provider: RASHAUN GIORDANO Reason For Exam: end-stage renal needing hemodialysis Notified:: paged 04/24/17 10:24 Consult to Physician [CONS] Routine Reason For Exam: pancytopenia Consulting Provider: VERONICA HOUSER Primary care physician: SURGICAL TECHNOLOGY INSTRUCTOR Hospitalization Reason for admission: CHEST PAIN Condition: Stable Hospital course: Patient is a 36 year ESRD on HD which she states started as a result of Preeclampsia, ON HD she presents to the ER with complaints of Right and left arm pain and although chest pain is reported the patient denies this. she was last dialysed on but has missed a series of Dialysis since relocating to [place]. Patient was restarted on dialysis by nephrology which was uneventful. We did work with case management to obtain an outpatient dialysis center which will change her days to Thursday. The patient had a study for hepatitis which came back negative. Procrit was given during dialysis. The patient was advised to follow-up with hematology oncology for persistent pancytopenia she she's already aware of this diagnosis but does not know to which severity. No other infectious etiology was noted. No abnormal bleeding was noted while in the hospital. Electrolytes were replaced and corrected. Hypoglycemia previously noted resolved. Stress test was done and was unremarkable. Discharge Diagnosis Atypical chest pain secondary to costochondritis ESRD HYPERKALEMIA HTN URGENCY Pancytopenia Anemia-Secondary to ESRD Hypoglycemia * Resolved Noncompliance * educated about compliance issues Disposition: DC-01 TO HOME OR SELFCARE Time spent for discharge: 35 mins Core Measure Documentation - Palliative Care Palliative Care/ Comfort Measures: Not Applicable - Core Measures Any of the following diagnoses?: none - VTE Discharge Requirements Deep Vein Thrombosis/Pulmonary Embolism Present on Admission: No Exam - Physical Exam Narrative exam: VITAL SIGNS: Reviewed. GENERAL: The patient appeared well nourished and normally developed. Vital signs as documented. HEAD: No signs of head trauma. EYES: Pupils are equal. Extraocular motions intact. EARS: Hearing grossly intact. MOUTH: Oropharynx is normal. NECK: No adenopathy, no JVD. CHEST: Chest with clear breath sounds bilaterally. No wheezes, rales, or rhonchi. CARDIAC: Regular rate and rhythm. S1 and S2, without murmurs, gallops, or rubs. VASCULAR: No Edema. Peripheral pulses normal and equal in all extremities. ABDOMEN: Soft, without detectable tenderness. No sign of distention. No rebound or guarding, and no masses palpated. Bowel Sounds normal. MUSCULOSKELETAL: Good range of motion of all major joints. Extremities without clubbing, cyanosis or edema. NEUROLOGIC EXAM: Alert and oriented x 3. No focal sensory or strength deficits. Speech normal. Follows commands. PSYCHIATRIC: Mood normal. SKIN: AV fistula in her left upper arm. - Constitutional Vitals: Temp Pulse Resp BP Pulse Ox 99.7 F H 64 18 169/109 100 04/24/17 04:08 04/24/17 09:12 04/23/17 23:46 04/24/17 09:12 04/24/17 09:12 Plan Activity: advance as tolerated, fall precautions Diet: renal Special Instructions: record daily weights, record daily BP diary Follow up with: PRIMARY CARE, [Primary Care Provider] - 3-5 Days JERMAN ALATORRE MD [Staff Physician] - 7 Days VERONICA HOUSER MD [Staff Physician] - 7 Days Prescriptions: amLODIPine [Norvasc] 5 mg PO DAILY #30 tablet Carvedilol [Coreg] 25 mg PO BID #60 tablet cloNIDine [Clonidine] 1 each TD QWEEK #4 patch.tdwk Lisinopril [Zestril TAB] 20 mg PO BID #60 tablet
[2017-04-24] MEDS: ZESTRIL PO SCH (10:43)
[2017-04-24] MEDS: NORVASC PO SCH (10:43)
[2017-04-24] MEDS: COREG PO SCH (10:43)
[2017-04-24] MEDS: HEPARIN SUB-Q SCH (10:44)
[2017-04-24] MEDS ORDERED: NACL 0.9% 100 ML IV PRN (12:19)
--- NOTE | 2017-04-24 12:19 | Progress Note ---
Assessment and Plan impression * End-stage renal disease on maintenance hemodialysis * chest pain * Hyperkalemia * Hypertension * Noncompliance * Anemia secondary to ESRD recommendations * Uneventful hemodialysis yesterday. * Hyperkalemia has been corrected * Her BUN and creatinine is much better * Procrit with dialysis * Adjust diet and meds for ESRD state * no IV, BP R venipuncture in her access arm * Shall change her dialysis days to TTS * Okay to discharge home once outpatient dialysis arrangements made Subjective Date of service: 04/24/17 Interval history: Patient feels better today. Denies any shortness of breath. No nausea vomiting or diarrhea Objective - Vital Signs Vital signs: Vital Signs - 12hr 04/24/17 04/24/17 04/24/17 04:08 09:11 09:12 Temperature 99.7 F H Pulse Rate 66 64 64 Pulse Rate [ Right Radial] Respiratory Rate Respiratory Rate [Chest] Blood Pressure 169/109 Blood Pressure 141/87 [Left] O2 Sat by Pulse 98 100 Oximetry 04/24/17 10:00 Temperature Pulse Rate Pulse Rate [ 20 L Right Radial] Respiratory 20 Rate Respiratory 20 Rate [Chest] Blood Pressure Blood Pressure [Left] O2 Sat by Pulse 100 Oximetry - General Appearance General appearance: well-developed, well-nourished, appears stated age EENT: PERRL, mucous membranes moist Neck: no JVD, no thyromegaly, no carotid bruit, supple Respiratory: Present: Clear to Ascultation Cardiology: regular, normal heart rate, S1S2, no murmurs Gastrointestinal: normal, normoactive bowel sounds Integumentary: no rash, other (AV fistula in her left upper arm. Good bruit and thrill) - Lab 04/24/17 05:16 04/24/17 05:16 Most recent lab results Calcium 8.7 mg/dL (8.4-10.2) 04/24/17 05:16
== END 2017-04-24 15:24 | disposition home or self-care (01) | DRG 205 ==
LOC: ED 20:14 → 4A 04-22 11:29
PROVIDERS: ADMIT Internal Medicine; ATTEND Internal Medicine
PROC: 5A1D60Z (ICD-10-PCS; principal; 2017-04-22)
DX: M94.0 Chondrocostal junction syndrome [Tietze] (principal); N18.6 End stage renal disease; I12.0 Hypertensive chronic kidney disease with stage 5 chronic kidney disease or end stage renal disease; D61.818 Other pancytopenia; I42.9 Cardiomyopathy, unspecified; E87.5 Hyperkalemia; G89.29 Other chronic pain; F17.200 Nicotine dependence, unspecified, uncomplicated; F12.90 Cannabis use, unspecified, uncomplicated; D69.6 Thrombocytopenia, unspecified; E11.22 Type 2 diabetes mellitus with diabetic chronic kidney disease; D63.1 Anemia in chronic kidney disease; I16.0 Hypertensive urgency; E11.649 Type 2 diabetes mellitus with hypoglycemia without coma; Z91.048 Other nonmedicinal substance allergy status; Z88.8 Allergy status to other drugs, medicaments and biological substances; Z91.19 Patient's noncompliance with other medical treatment and regimen; Z79.899 Other long term (current) drug therapy; Z99.2 Dependence on renal dialysis
CPT/HCPCS: 36415; 71020; 78452; 80048; 80053; 80074; 82550; 82553; 82962; 83036; 83880; 84484; 84703; 85025; 85027; 93005; 93010; 93017; 96374; 96375; 99406; A9502; J0360; J1644; J1815; J2405; J2785; J7030